=== PATIENT | male | born 1995 | race Caucasian/White ===

== ENCOUNTER → 2018-09-13 | Outpatient (CLI) | payer BC ==
--- NOTE | 2018-09-13 09:29 | CT ---
EXAMINATION TYPE: CT soft tissue neck w con DATE OF EXAM: 09/13/2018 COMPARISON: None HISTORY: Neck mass right side CT DLP: 364.4 mGycm CONTRAST: Patient injected with 100 mL of Isovue 300. TECHNIQUE: Axial images at 3 mm thick sections. Reconstructed images in the coronal plane and sagitt al plane are reviewed. FINDINGS: Limited CT sections are obtained the lung apices. The lung apices appear clear. CT neck: The torus tubarius and fossa of Rosenmuller are normal. [employer] spaces are normal. Para nasal sinuses and mastoid air cells are clear. There is right septal spurring. Ostiomeatal units. Parotid glands appear normal and symmetrical. Submandibular glands, are normal. Parapharyngeal spac es are normal. No suspicious adenopathy is evident. The hypopharynx appears within normal limits. Vocal cord level appear symmetrical. Thyroid as visualized is normal. Osseous structures are normal. The level marked by the BB, no underlying abnormality is evident. This is at the level of the right s ternocleidomastoid muscle. IMPRESSIONS: 1. Normal soft tissue neck. 2. No suspicious masses at the level marked by the BB are evident
== END ==
LOC: RADCTMAIN 07:20
PROVIDERS: ATTEND Family Medicine
DX: R22.1 Localized swelling, mass and lump, neck (principal); Z88.5 Allergy status to narcotic agent
CPT/HCPCS: 70491; Q9967